=== PATIENT | female | born 1990 | race Caucasian/White ===

== ENCOUNTER 2018-05-16 08:50 | Emergency (ER) | payer MEDICAID ==
[~2018-05-16] VITALS: Ht 170.2 cm; Wt 68.0 kg
[2018-05-16 09:01] VITALS: Ht 170.2 cm; Wt 68.0 kg
[2018-05-16 10:40] VITALS: BP 132/62
== END 2018-05-16 10:58 | disposition home or self-care (01) ==
LOC: EDBD 08:50 → ED 08:50
DX: H92.12 Otorrhea, left ear (principal); N39.0 Urinary tract infection, site not specified; B34.9 Viral infection, unspecified; Z88.1 Allergy status to other antibiotic agents